=== PATIENT | male | born 1985 | race Caucasian/White ===

== ENCOUNTER 2016-10-14 17:16 | Emergency (ER) | payer OTHER ==
[~2016-10-14 17:16] MED LIST: CILOXAN 0.3% O2.5 ML OP; CYCLOBENZAPRINE5 M1 PO; FLEXERIL 10MG PO; MEDROL4 MG/DOSE- PO; NORCO 10/325 TA1 TAB PO; NORCO 5-325 TA1 EACH PO; PERCOCET 5/3251 TAB PO; PHENERGAN W/CO120 M2 PO; TYLENOL COLD M240 ML; ZITHROMAX250MG Z-PAK PO; ZOFRAN ODT4 MG/UDTAB PO
[2016-10-14] MEDS ORDERED: HYDROCODON-ACE1 EA16 PO (17:48)
[2016-10-14] MEDS ORDERED: CYCLOBENZAPRINE5 M1 PO (17:48)
[2016-10-14] MEDS ORDERED: IBUPROFEN800 M1 PO (17:48)
[2016-10-14] MEDS ORDERED: NORCO 5-325 TA1 EACH PO (18:53)
[2016-10-14] MEDS ORDERED: CYCLOBENZAPRINE10 M1 PO (18:53)
== END 2016-10-14 19:12 ==
LOC: EDMED 17:16
DX: G89.29 Other chronic pain (principal); M54.5 Low back pain
CPT/HCPCS: J1885